=== PATIENT | male | born 1955 | race Two or more races ===

== ENCOUNTER 2018-07-10 15:15 | Inpatient (IN) | payer OTHER ==
[2018-07-10 17:31] VITALS: BMI 33.9
--- NOTE | 2018-07-10 19:15 | HP ---
CIWA Score - CIWA Score Nausea/Vomitin-Mild Nausea/No Vomiting Muscle Tremors: 1-None Visible, but [place] Anxiety: 2 Agitation: 1-Slight > Activity Paroxysmal Sweats: 1-Minimal Palms Moist Orientation: 2-Disoriented Date<2 days Tacttile Disturbances: 2-Mild Itch/Numbness/Burn Auditory Disturbances: 0-None Visual Disturbances: 0-None Headache: 2-Mild CIWA-Ar Total Score: 12 Admission [facility] - HPI Chief Complaint: Patient presents with ETOH withdrawal symptoms. Allergies/Adverse Reactions: Allergies Allergy/AdvReac Type Severity Reaction Status Date / Time No Known Allergies Allergy Verified 10/01/13 13:51 History of Present Illness: Patient presents with ETOH withdrawal symptoms. Patient started drinking at age 15 and drinks 6 beers daily. Last drink was last night. Denies history of seizures. Patient also sniffs heroin 5-10 bags daily. Last time he used was yesterday. Currently on MMTP program at [facility] and last dose of MTD 40mg was today. Denies recent use of cocaine but has used in past. Has history of overdose 10 years ago. PMH includes depression, DM, and HTN. Non-compliant with medication. Denies SI/HI and suicide attempts. Exam Limitations: No Limitations - Ebola screening Have you traveled outside of the country in the last 21 days: No Have you had contact with anyone from an Ebola affected area: No Have you been sick,other than usual withdrawal symptoms: No Do you have a fever: No - Review of Systems Constitutional: Chills, Night Sweats, Changes in sleep EENT: denies: Blurred Vision, Tearing, Hearing Loss Respiratory: denies: Cough, Shortness of Breath Cardiac: denies: Chest Pain, Palpitations, Syncope GI: reports: Diarrhea, Nausea, Poor Appetite, Poor Fluid Intake : reports: Frequency Musculoskeletal: reports: Back Pain, Muscle Pain Integumentary: reports: Other (moist skin). denies: Rash Neuro: reports: Headache, Numbness, Tremors, Unsteady Gait. denies: Seizure Endocrine: reports: No Symptoms Reported Hematology: reports: No Symptoms Reported Psychiatric: reports: Anxious, Depressed Patient History - Patient Medical History Hx Anemia: No Hx Asthma: No Hx Chronic Obstructive Pulmonary Disease (COPD): No Hx Cancer: No Hx Cardiac Disorders: No Hx Congestive Heart Failure: No Hx Hypertension: Yes Hx Hypercholesterolemia: Yes (ON MED NON COMPLIANCE) Hx Pacemaker: No HX Cerebrovascular Accident: No Hx Seizures: No Hx Dementia: No Hx Diabetes: Yes (BGM: 214mg/dl) Hx Gastrointestinal Disorders: No Hx Liver Disease: No Hx Genitourinary Disorders: No Hx Sexually Transmitted Disorders: No Hx Renal Disease (ESRD): No Hx Thyroid Disease: No Hx Human Immunodeficiency Virus (HIV): Yes (07/19 NEGATIVE) Hx Hepatitis C: No Hx Depression: Yes Hx Suicide Attempt: No Hx Bipolar Disorder: No Hx Schizophrenia: No - Patient Surgical History Past Surgical History: Yes Hx Neurologic Surgery: No Hx Cataract Extraction: No Hx Cardiac Surgery: No Hx Lung Surgery: No Hx Breast Surgery: No Hx Breast Biopsy: No Hx Abdominal Surgery: Yes (LEFT INGUINAL HERNIA REPAIR IN 1990) Hx Appendectomy: No Hx Cholecystectomy: No Hx Genitourinary Surgery: No Hx Orthopedic Surgery: No Anesthesia Reaction: No - PPD History Previous Implant?: Yes Documented Results: Positive w/o proof PPD to be Administered?: No - Smoking Cessation Smoking history: Current every day smoker Have you smoked in the past 12 months: Yes Aproximately how many cigarettes per day: 4 Hx Chewing Tobacco Use: No Initiated information on smoking cessation: Yes 'Breaking Loose' booklet given: 07/10/18 - Substance & Tx. History Hx Alcohol Use: Yes Hx Substance Use: Yes Substance Use Type: Alcohol, Cocaine, Heroin - Substances Abused Alcohol Route: Oral Frequency: 1-2 times per week Amount used: Beer 3 cans Age of first use: 14 Date of Last Use: 07/06/18 Heroin Route: Inhalation Frequency: Daily Amount used: 5-10 bags Age of first use: 27 Date of Last Use: 07/09/18 Cocaine Route: Inhalation Frequency: 1-2 times per week Amount used: $30 Age of first use: 27 Date of Last Use: 07/06/18 Family Disease History - Family Disease History Family Disease History: Other: Brother (ALCOHOL ) Admission Physical Exam S - Vital Signs Vital Signs: Vital Signs - 24 hr 07/10/18 17:28 Temperature 97.8 F Pulse Rate 73 Respiratory 20 Rate Blood Pressure 140/74 - Physical General Appearance: Yes: Disheveled, Tremorous, Sweating, Anxious HEENTM: Yes: EOMI, Hearing grossly Normal, Normal ENT Inspection, Normocephalic , MAJO Respiratory: Yes: Chest Non-Tender, Lungs Clear, Normal Breath Sounds, No Respiratory Distress, No Accessory Muscle Use Neck: Yes: No masses,lesions,Nodules, Supple Breast: Yes: Breast Exam Deferred Cardiology: Yes: Regular Rhythm, Regular Rate, S1, S2 Abdominal: Yes: Normal Bowel Sounds, Non Tender, Soft Genitourinary: Yes: Frequency Back: Yes: Normal Inspection, Muscle Spasm Musculoskeletal: Yes: full range of Motion, Gait Steady, Back pain, Muscle Pain Extremities: Yes: Normal Inspection, Normal Range of Motion, Non-Tender, Tremors Neurological: Yes: railroader II-XII NML intact, Fully Oriented, Alert, Motor Strength 5/5, Normal Response, Depressed Affect Integumentary: Yes: Normal Color, Warm, Moist Lymphatic: Yes: Within Normal Limits Cleared for Admission [facility] - Detox or Rehab [facility] Level of Care: Medically Managed Detox Regimen/Protocol: Librium [facility] Breath Alcohol Content Breath Alcohol Content: 0 Urine Drug Screen - Results Drug Screen Negative: No Urine Drug Screen Results: OPI-Opiates, MTD-Methadone
[2018-07-10] MEDS ORDERED: MENTHOL/PHENOL 1 EACH UD MM PRN (19:25)
[2018-07-10] MEDS ORDERED: MAGNESIUM CITRATE 300 ML BOTTLE PO PRN (19:25)
[2018-07-10] MEDS ORDERED: hydrOXYzine PAMOATE 50 MG CAPSULE (FP) PO PRN (19:25)
[2018-07-10] MEDS ORDERED: LOPERAMIDE HCL 2 MG CAPSULE PO PRN (19:25)
[2018-07-10] MEDS ORDERED: IBUPROFEN 400 MG TABLET (FP) PO PRN (19:25)
[2018-07-10] MEDS ORDERED: MAG HYDROX/AL HYDROX/SIMETH 30 ML UNIT-DOSE CUP PO PRN (19:25)
[2018-07-10] MEDS ORDERED: MAGNESIUM HYDROX 2400MG/30ML ORAL SUSPENSION 30 ML CUP PO PRN (19:25)
[2018-07-10] MEDS ORDERED: P-EPHED 60MG/TRIPROLIDI 2.5MG TABLET PO PRN (19:25)
[2018-07-10] MEDS ORDERED: guaiFENesin/D-METHORPHAN HB 10 ML UNIT-DOSE CUPS PO PRN (19:25)
[2018-07-10] MEDS ORDERED: ACETAMINOPHEN 325 MG TABLET (FP) PO PRN (19:25)
[2018-07-10] MEDS ORDERED: NICOTINE POLACRILEX 2 MG GUM BC PRN (19:25)
[2018-07-10] MEDS ORDERED: chlordiazePOXIDE HCL 25 MG CAPSULE PO PRN (19:27)
[2018-07-10] MEDS: chlordiazePOXIDE HCL 25 MG CAPSULE PO SCH (22:42)
[2018-07-10] MEDS: THIAMINE HCL 100 MG TABLET (FP) PO SCH (22:43)
[2018-07-10] MEDS: MELATONIN 5 MG TABLETS PO PRN (22:44)
[2018-07-11 01:50] LABS: URINE APPEARANCE CLEAR; URINE BILIRUBIN NEGATIVE (<2.0 mg/dL); URINE COLOR LTYELLOW; URINE GLUCOSE (UA) 3+ (NEGATIVE); URINE KETONE NEGATIVE (NEGATIVE); URINE LEUK ESTERASE NEGATIVE (NEGATIVE); URINE NITRITE NEGATIVE (NEGATIVE); URINE PROTEIN NEGATIVE (NEGATIVE); URINE UROBILINOGEN NEGATIVE mg/dL (0.2-1.0)
[2018-07-11] MEDS: chlordiazePOXIDE HCL 25 MG CAPSULE PO SCH ×4 (05:46→22:37)
[2018-07-11] MEDS ORDERED: METHADONE HCL 40 MG DISPERSABLE TABLET PO ONE (08:40)
--- NOTE | 2018-07-11 09:00 | CONSULT ---
[facility] Psychiatric Consult - Data Date of interview: 07/11/18 Admission source: [facility] Identifying data: Alejandra is a 63 years old male, single father of three, unemployed, domiciled, on SSI, with no psychiatric hospitalization history, with history of Heroin, Cocaine, Alcohol and Nicotine dependence, is reporting withdrawal symptoms amd seeking detox. Substance Abuse History: Smoking history: Current every day smoker. Have you smoked in the past 12 months: Yes. Aproximately how many cigarettes per day: 4. Hx Chewing Tobacco Use: No. Initiated information on smoking cessation: Yes. 'Breaking Loose' booklet given: 07/10/18. - Substance & Tx. History. Hx Alcohol Use: Yes. Hx Substance Use: Yes. Substance Use Type: Alcohol, Cocaine , Heroin. - Substances Abused. Alcohol. Route: Oral. Frequency: 1-2 times per week. Amount used: Beer 3 cans. Age of first use: 14. Date of Last Use: 07/06/18. Heroin. Route: Inhalation. Frequency: Daily. Amount used: 5-10 bags. Age of first use: 27. Date of Last Use: 07/09/18. Cocaine. Route: Inhalation. Frequency: 1-2 times per week. Amount used: $30. Age of first use: 27. Date of Last Use: 07/06/18 Medical History: DM-II, HTN Psychiatric History: Patient reports history of depression and anxiety, denies suicidal, homicidal history, reports no history of psychiatric admissionl, reports no medications taking prior to admission. Physical/Sexual Abuse/Trauma History: Denies Additional Comment: Observation. Detox Unit Care Protocol Mental Status Exam - Mental Status Exam Alert and Oriented to: Person Cognitive Function: Fair Patient Appearance: Unkempt Mood: Sad Affect: Flat Patient Behavior: Sedated Speech Pattern: Delayed Voice Loudness: Mildly Soft/Quiet Thought Process: Circumstantial Thought Disorder: Being Controlled Hallucinations: Denies Suicidal Ideation: Denies Homicidal Ideation: Denies Insight/Judgement: Fair Sleep: Difficulty falling asleep Appetite: Weight gain Muscle strength/Tone: Mild Hypotonicity Gait/Station: Shuffling Additional Comments: Observation. Detox Unit Care Protocol Psychiatric Findings - Problem List ([place] 1, 2,3) (1) Alcohol-induced mood disorder Current Visit: Yes Status: Acute (2) Alcohol dependence with uncomplicated withdrawal Current Visit: Yes Status: Chronic (3) Essential hypertension Current Visit: Yes Status: Chronic (4) Alcohol dependence Current Visit: No Status: Active (5) Syncope Current Visit: No Status: Active - Initial Treatment Plan Initial Treatment Plan: Observation. Detox Unit Care Protocol
--- NOTE | 2018-07-11 10:21 | PN ---
S CIWA - CIWA Score Nausea/Vomitin Muscle Tremors: 2 Anxiety: 3 Agitation: 2 Paroxysmal Sweats: 3 Orientation: 0-Oriented Tacttile Disturbances: 2-Mild Itch/Numbness/Burn Auditory Disturbances: 0-None Visual Disturbances: 0-None Headache: 0-None Present CIWA-Ar Total Score: 14 S Progress Note (SOAP) Subjective: interrupted sleep, sweats, anxious, weakness, tired Objective: 07/11/18 10:19 Vital Signs Temperature 97.3 F L 07/11/18 06:13 Pulse Rate 70 07/11/18 06:13 Respiratory Rate 18 07/11/18 06:13 Blood Pressure 153/78 07/11/18 06:13 O2 Sat by Pulse Oximetry (%) Vital Signs Temperature 97.3 F L 07/11/18 06:13 Pulse Rate 70 07/11/18 06:13 Respiratory Rate 18 07/11/18 06:13 Blood Pressure 153/78 07/11/18 06:13 O2 Sat by Pulse Oximetry (%) Laboratory Tests 07/10/18 07/11/18 23:07 05:44 POC Glucometer 240 Urine Color Ltyellow Urine Appearance Clear Urine pH 5.0 Ur Specific [place] 1.032 Urine Protein Negative Urine Glucose (UA) 3+ H Urine Ketones Negative Urine Blood Negative Urine Nitrite Negative Urine Bilirubin Negative Urine Urobilinogen Negative Ur Leukocyte Esterase Negative pending labs pt aox3 in nad ambulating Assessment: 07/11/18 10:20 withdrawal sx's OTP 07/11/18 10:21 Plan: cont. detox increase fluids methadone 40mg /d f/up pending labs
[2018-07-11 10:23] LABS: HEMATOCRIT 39.3 % (35.4-49); HEMOGLOBIN 13.3 GM/dL (11.7-16.9); MCH 29.3 pg (25.7-33.7); MCHC 33.8 g/dl (32.0-35.9); MEAN CELL VOLUME 86.8 fl (80-96); PLATELET COUNT 219 K/MM3 (134-434); RBC 4.53 M/mm3 (4.00-5.60); RDW 13.6 % (11.9-15.9); WHITE BLOOD COUNT 8.3 K/mm3 (4.0-10.0)
[2018-07-11 10:50] LABS: CHLORIDE 99 mmol/L (98-107); POTASSIUM 4.1 mmol/L (3.5-5.1); SODIUM 137 mmol/L (136-145)
[2018-07-11] MEDS: PRENATAL VITAMINS W/ FOLIC ACID TABLET (FP) PO SCH (10:54)
[2018-07-11] MEDS: NICOTINE 21 MG/24 HOURS TOPICAL PATCH TD SCH (10:55)
[2018-07-11 11:17] LABS: ALBUMIN 3.4 g/dl (3.4-5.0); ALK PHOS 124 U/L (45-117); ANION GAP 7 MMOL/L (8-16); BILIRUBIN,TOTAL 0.5 mg/dL (0.2-1.0); BLOOD UREA NITROGEN 13 mg/dL (7-18); CO2 31 mmol/L (21-32); CREATININE 0.8 mg/dL (0.7-1.3); GLUCOSE,RANDOM 272 mg/dL (74-106); SGOT/AST 13 U/L (15-37); SGPT/ALT 15 U/L (12-78); TOT PROT 6.8 g/dl (6.4-8.2)
--- NOTE | 2018-07-11 12:32 | EKG ---
Test Reason : Blood Pressure : / mmHG Vent. Rate : 073 BPM Atrial Rate : 073 BPM P-R Int : 190 ms QRS Dur : 090 ms QT Int : 404 ms P-R-T Axes : 061 040 075 degrees QTc Int : 445 ms POOR DATA QUALITY, INTERPRETATION MAY BE ADVERSELY AFFECTED NORMAL SINUS RHYTHM NORMAL ECG NO PREVIOUS ECGS AVAILABLE Confirmed by SHARON GARRETT MD ([id number]) on 07/11/2018 12:31:49 PM Referred By: Confirmed By:SHARON GARRETT MD
--- NOTE | 2018-07-11 15:27 | EKG ---
Test Reason : Blood Pressure : / mmHG Vent. Rate : 081 BPM Atrial Rate : 081 BPM P-R Int : 174 ms QRS Dur : 094 ms QT Int : 390 ms P-R-T Axes : 060 047 065 degrees QTc Int : 453 ms NORMAL SINUS RHYTHM NORMAL ECG WHEN COMPARED WITH ECG OF 10-JUL-2018 21:54, NO SIGNIFICANT CHANGE WAS FOUND Confirmed by SHARON GARRETT MD ([id number]) on 07/11/2018 3:26:27 PM Referred By: Confirmed By:SHARON GARRETT MD
[2018-07-11] MEDS ORDERED: INSULIN (NOVOLOG) ASPART 100 UNITS/ML 10ML VIAL ONE ×2 (17:50→22:42)
[2018-07-11] MEDS: metFORMIN HCL 500 MG TABLET (FP) PO SCH (17:55)
[2018-07-11] MEDS: INSULIN SLIDING SCALE (NOVOLOG) 1 VIAL SQ SCH ×2 (17:55→22:40)
[2018-07-11] MEDS: THIAMINE HCL 100 MG TABLET (FP) PO SCH (22:37)
[2018-07-11] MEDS: MELATONIN 5 MG TABLETS PO PRN (22:42)
[2018-07-12] MEDS: chlordiazePOXIDE HCL 25 MG CAPSULE PO SCH ×3 (05:52→17:53)
[2018-07-12] MEDS: METHADONE HCL 40 MG DISPERSABLE TABLET PO SCH (05:52)
[2018-07-12] MEDS: metFORMIN HCL 500 MG TABLET (FP) PO SCH ×2 (06:00→17:39)
[2018-07-12] MEDS: INSULIN SLIDING SCALE (NOVOLOG) 1 VIAL SQ SCH ×4 (07:00→22:42)
[2018-07-12] MEDS: PRENATAL VITAMINS W/ FOLIC ACID TABLET (FP) PO SCH (10:46)
[2018-07-12] MEDS: NICOTINE 21 MG/24 HOURS TOPICAL PATCH TD SCH (10:46)
[2018-07-12] MEDS ORDERED: INSULIN (NOVOLOG) ASPART 100 UNITS/ML 10ML VIAL ONE ×2 (11:24→22:42)
--- NOTE | 2018-07-12 20:30 | PN ---
[facility] CIWA - CIWA Score Nausea/Vomitin-Mild Nausea/No Vomiting Muscle Tremors: 4-Moderate,w/Arms Extend Anxiety: 1-Mildly Anxious Agitation: 0-Normal Activity Paroxysmal Sweats: No Perspiration Orientation: 0-Oriented Auditory Disturbances: 0-None Visual Disturbances: 0-None Headache: 0-None Present [facility] Progress Note (SOAP) Subjective: States feeling better. Still w/ some nausea. w/o vomiting. Objective: A&O x 3. Tremors of hands. Abd S/NT/BS+. Vital Signs 07/12/18 07/12/18 13:36 17:27 Temperature 97.9 F 98.1 F Pulse Rate 70 79 Respiratory 18 18 Rate Blood Pressure 138/78 127/85 Laboratory Last Values WBC 8.3 K/mm3 (4.0-10.0) 07/11/18 07:30 RBC 4.53 M/mm3 (4.00-5.60) 07/11/18 07:30 Hgb 13.3 GM/dL (11.7-16.9) 07/11/18 07:30 Hct 39.3 % (35.4-49) 07/11/18 07:30 MCV 86.8 fl (80-96) 07/11/18 07:30 MCH 29.3 pg (25.7-33.7) 07/11/18 07:30 MCHC 33.8 g/dl (32.0-35.9) 07/11/18 07:30 RDW 13.6 % (11.9-15.9) 07/11/18 07:30 Plt Count 219 K/MM3 (134-434) D 07/11/18 07:30 MPV 9.0 fl (7.5-11.1) D 07/11/18 07:30 Sodium 137 mmol/L (136-145) 07/11/18 07:30 Potassium 4.1 mmol/L (3.5-5.1) 07/11/18 07:30 Chloride 99 mmol/L (98-107) 07/11/18 07:30 Carbon Dioxide 31 mmol/L (21-32) 07/11/18 07:30 Anion Gap 7 MMOL/L (8-16) L 07/11/18 07:30 BUN 13 mg/dL (7-18) 07/11/18 07:30 Creatinine 0.8 mg/dL (0.7-1.3) 07/11/18 07:30 Creat Clearance w eGFR > 60 (>60) 07/11/18 07:30 POC Glucometer 222 UNITS (80-120) 07/12/18 16:43 Random Glucose 272 mg/dL (74-106) H D 07/11/18 07:30 Calcium 9.0 mg/dL (8.5-10.1) 07/11/18 07:30 Total Bilirubin 0.5 mg/dL (0.2-1.0) 07/11/18 07:30 AST 13 U/L (15-37) L 07/11/18 07:30 ALT 15 U/L (12-78) D 07/11/18 07:30 Alkaline Phosphatase 124 U/L (45-117) H 07/11/18 07:30 Total Protein 6.8 g/dl (6.4-8.2) 07/11/18 07:30 Albumin 3.4 g/dl (3.4-5.0) 07/11/18 07:30 Urine Color Ltyellow 07/10/18 23:07 Urine Appearance Clear 07/10/18 23:07 Urine pH 5.0 (5.0-8.0) 07/10/18 23:07 Ur Specific [place] 1.032 (1.001-1.035) 07/10/18 23:07 Urine Protein Negative (NEGATIVE) 07/10/18 23:07 Urine Glucose (UA) 3+ (NEGATIVE) H 07/10/18 23:07 Urine Ketones Negative (NEGATIVE) 07/10/18 23:07 Urine Blood Negative (NEGATIVE) 07/10/18 23:07 Urine Nitrite Negative (NEGATIVE) 07/10/18 23:07 Urine Bilirubin Negative (<2.0 mg/dL) 07/10/18 23:07 Urine Urobilinogen Negative mg/dL (0.2-1.0) 07/10/18 23:07 Ur Leukocyte Esterase Negative (NEGATIVE) 07/10/18 23:07 RPR Titer Nonreactive (NONREACTIVE) 07/11/18 07:30 Labs reviewed. Assessment: Alcohol withdrawal symptoms. Diabetes 07/12/18 20:29 Plan: Continue detox. Continue glucose monitoring.
[2018-07-12] MEDS: THIAMINE HCL 100 MG TABLET (FP) PO SCH (22:39)
[2018-07-12] MEDS: chlordiazePOXIDE 5 MG CAPSULE PO SCH (22:39)
[2018-07-12] MEDS: MELATONIN 5 MG TABLETS PO PRN (22:43)
[2018-07-13] MEDS: chlordiazePOXIDE 5 MG CAPSULE PO SCH ×3 (06:17→17:26)
[2018-07-13] MEDS: metFORMIN HCL 500 MG TABLET (FP) PO SCH ×2 (06:18→17:27)
[2018-07-13] MEDS: METHADONE HCL 40 MG DISPERSABLE TABLET PO SCH (06:18)
[2018-07-13] MEDS: INSULIN SLIDING SCALE (NOVOLOG) 1 VIAL SQ SCH ×3 (08:00→17:25)
[2018-07-13] MEDS: PRENATAL VITAMINS W/ FOLIC ACID TABLET (FP) PO SCH (10:48)
[2018-07-13] MEDS: NICOTINE 21 MG/24 HOURS TOPICAL PATCH TD SCH (10:48)
[2018-07-13] MEDS ORDERED: INSULIN (NOVOLOG) ASPART 100 UNITS/ML 10ML VIAL ONE ×2 (12:08→17:15)
--- NOTE | 2018-07-13 15:20 | PN ---
S Progress Note (SOAP) Subjective: Patient states wants to go to rehab. States alcohol withdrawal symptoms will be manageable w/o librium. Objective: A & O x 3. Mild tremors of hands. Vital Signs 07/13/18 07/13/18 09:05 13:24 Temperature 98.6 F 97.9 F Pulse Rate 85 70 Respiratory 18 18 Rate Blood Pressure 153/84 120/52 Laboratory Last Values WBC 8.3 K/mm3 (4.0-10.0) 07/11/18 07:30 RBC 4.53 M/mm3 (4.00-5.60) 07/11/18 07:30 Hgb 13.3 GM/dL (11.7-16.9) 07/11/18 07:30 Hct 39.3 % (35.4-49) 07/11/18 07:30 MCV 86.8 fl (80-96) 07/11/18 07:30 MCH 29.3 pg (25.7-33.7) 07/11/18 07:30 MCHC 33.8 g/dl (32.0-35.9) 07/11/18 07:30 RDW 13.6 % (11.9-15.9) 07/11/18 07:30 Plt Count 219 K/MM3 (134-434) D 07/11/18 07:30 MPV 9.0 fl (7.5-11.1) D 07/11/18 07:30 Sodium 137 mmol/L (136-145) 07/11/18 07:30 Potassium 4.1 mmol/L (3.5-5.1) 07/11/18 07:30 Chloride 99 mmol/L (98-107) 07/11/18 07:30 Carbon Dioxide 31 mmol/L (21-32) 07/11/18 07:30 Anion Gap 7 MMOL/L (8-16) L 07/11/18 07:30 BUN 13 mg/dL (7-18) 07/11/18 07:30 Creatinine 0.8 mg/dL (0.7-1.3) 07/11/18 07:30 Creat Clearance w eGFR > 60 (>60) 07/11/18 07:30 POC Glucometer 349 UNITS (80-120) 07/13/18 12:04 Random Glucose 272 mg/dL (74-106) H D 07/11/18 07:30 Calcium 9.0 mg/dL (8.5-10.1) 07/11/18 07:30 Total Bilirubin 0.5 mg/dL (0.2-1.0) 07/11/18 07:30 AST 13 U/L (15-37) L 07/11/18 07:30 ALT 15 U/L (12-78) D 07/11/18 07:30 Alkaline Phosphatase 124 U/L (45-117) H 07/11/18 07:30 Total Protein 6.8 g/dl (6.4-8.2) 07/11/18 07:30 Albumin 3.4 g/dl (3.4-5.0) 07/11/18 07:30 Urine Color Ltyellow 07/10/18 23:07 Urine Appearance Clear 07/10/18 23:07 Urine pH 5.0 (5.0-8.0) 07/10/18 23:07 Ur Specific [place] 1.032 (1.001-1.035) 07/10/18 23:07 Urine Protein Negative (NEGATIVE) 07/10/18 23:07 Urine Glucose (UA) 3+ (NEGATIVE) H 07/10/18 23:07 Urine Ketones Negative (NEGATIVE) 07/10/18 23:07 Urine Blood Negative (NEGATIVE) 07/10/18 23:07 Urine Nitrite Negative (NEGATIVE) 07/10/18 23:07 Urine Bilirubin Negative (<2.0 mg/dL) 07/10/18 23:07 Urine Urobilinogen Negative mg/dL (0.2-1.0) 07/10/18 23:07 Ur Leukocyte Esterase Negative (NEGATIVE) 07/10/18 23:07 RPR Titer Nonreactive (NONREACTIVE) 07/11/18 07:30 Labs reviewed. Assessment: Alcohol withdrawal - stabilizing. DM w/ Hyperglycemia Methadone maintenance Plan: Discontinue alcohol detox. Continue on methadone. Continue DM management Discharge to rehab.
--- NOTE | 2018-07-13 15:26 | DS ---
[facility] Detox Discharge Summary Admission Date: 07/10/18 Discharge Date: 07/13/18 - History Present History: Alcohol Dependence, Cocaine Dependence, MMTP Pertinent Past History: Patient with a hx of alcohol use disorder since age 14. Cocaine use disorder sine age 27. Heroin use disorder since age 27 but currently stable in a OTP on methadone. - Physical Exam Results Vital Signs: Vital Signs Temperature 97.9 F 07/13/18 13:24 Pulse Rate 70 07/13/18 13:24 Respiratory Rate 18 07/13/18 13:24 Blood Pressure 120/52 07/13/18 13:24 O2 Sat by Pulse Oximetry (%) Pertinent Admission Physical Exam Findings: Patient admitted with alcohol withdrawal symptoms. Patient with uncontrolled DM. Laboratory Tests 07/10/18 07/10/18 07/11/18 18:43 23:07 05:44 WBC RBC Hgb Hct MCV MCH MCHC RDW Plt Count MPV Sodium Potassium Chloride Carbon Dioxide Anion Gap BUN Creatinine Creat Clearance w eGFR POC Glucometer 214 240 Random Glucose Calcium Total Bilirubin AST ALT Alkaline Phosphatase Total Protein Albumin Urine Color Ltyellow Urine Appearance Clear Urine pH 5.0 Ur Specific [place] 1.032 Urine Protein Negative Urine Glucose (UA) 3+ H Urine Ketones Negative Urine Blood Negative Urine Nitrite Negative Urine Bilirubin Negative Urine Urobilinogen Negative Ur Leukocyte Esterase Negative RPR Titer 07/11/18 07/11/18 07/11/18 07:30 07:30 07:30 WBC 8.3 RBC 4.53 Hgb 13.3 Hct 39.3 MCV 86.8 MCH 29.3 MCHC 33.8 RDW 13.6 Plt Count 219 D MPV 9.0 D Sodium 137 Potassium 4.1 Chloride 99 Carbon Dioxide 31 Anion Gap 7 L BUN 13 Creatinine 0.8 Creat Clearance w eGFR > 60 POC Glucometer Random Glucose 272 H D Calcium 9.0 Total Bilirubin 0.5 AST 13 L ALT 15 D Alkaline Phosphatase 124 H Total Protein 6.8 Albumin 3.4 Urine Color Urine Appearance Urine pH Ur Specific [place] Urine Protein Urine Glucose (UA) Urine Ketones Urine Blood Urine Nitrite Urine Bilirubin Urine Urobilinogen Ur Leukocyte Esterase RPR Titer Nonreactive 07/11/18 07/11/18 07/12/18 16:27 22:39 05:58 WBC RBC Hgb Hct MCV MCH MCHC RDW Plt Count MPV Sodium Potassium Chloride Carbon Dioxide Anion Gap BUN Creatinine Creat Clearance w eGFR POC Glucometer 308 310 249 Random Glucose Calcium Total Bilirubin AST ALT Alkaline Phosphatase Total Protein Albumin Urine Color Urine Appearance Urine pH Ur Specific [place] Urine Protein Urine Glucose (UA) Urine Ketones Urine Blood Urine Nitrite Urine Bilirubin Urine Urobilinogen Ur Leukocyte Esterase RPR Titer 07/12/18 07/12/18 07/12/18 11:07 16:43 22:40 WBC RBC Hgb Hct MCV MCH MCHC RDW Plt Count MPV Sodium Potassium Chloride Carbon Dioxide Anion Gap BUN Creatinine Creat Clearance w eGFR POC Glucometer 318 222 307 Random Glucose Calcium Total Bilirubin AST ALT Alkaline Phosphatase Total Protein Albumin Urine Color Urine Appearance Urine pH Ur Specific [place] Urine Protein Urine Glucose (UA) Urine Ketones Urine Blood Urine Nitrite Urine Bilirubin Urine Urobilinogen Ur Leukocyte Esterase RPR Titer 07/13/18 07/13/18 07/13/18 06:12 12:04 16:35 WBC RBC Hgb Hct MCV MCH MCHC RDW Plt Count MPV Sodium Potassium Chloride Carbon Dioxide Anion Gap BUN Creatinine Creat Clearance w eGFR POC Glucometer 202 349 275 Random Glucose Calcium Total Bilirubin AST ALT Alkaline Phosphatase Total Protein Albumin Urine Color Urine Appearance Urine pH Ur Specific [place] Urine Protein Urine Glucose (UA) Urine Ketones Urine Blood Urine Nitrite Urine Bilirubin Urine Urobilinogen Ur Leukocyte Esterase RPR Titer LABS REVIEWED. - Treatment Hospital Course: Detox Protocol Followed, Detoxed Safely, Responded well, Discharged Condition Good (Alert and oriented. Gait steady.), Rehab Referral Accepted Patient has Accepted a Rehab Referral to: [facility] - Medication Discharge Medications: Ambulatory Orders Metformin HCl [Glucophage] 500 mg PO BID 07/10/18 - Diagnosis (1) Alcohol dependence with uncomplicated withdrawal Status: Acute (2) DM Diabetes mellitus type 2 Status: Chronic (3) Essential hypertension Status: Chronic - AMA Did Patient Leave Against Medical Advice: No
[2018-07-13 17:24] VITALS: BP 150/66; PULSE 73; TEMP 98.1
[2018-07-13] MEDS ORDERED: chlordiazePOXIDE HCL 10 MG CAPSULE PO SCH (23:00)
== END 2018-07-13 18:49 | disposition other institution (70) | DRG 773 ==
LOC: YASAS 15:15 → Y6N 20:26
PROC: HZ2ZZZZ Detoxification Services for Substance Abuse Treatment (ICD-10-PCS; principal; 2018-07-10)
DX: F10.230 Alcohol dependence with withdrawal, uncomplicated (principal); F11.20 Opioid dependence, uncomplicated; F14.20 Cocaine dependence, uncomplicated; F10.24 Alcohol dependence with alcohol-induced mood disorder; F32.9 Major depressive disorder, single episode, unspecified; I10 Essential (primary) hypertension; E11.65 Type 2 diabetes mellitus with hyperglycemia; Z91.14 Patient's other noncompliance with medication regimen; Z91.5 Personal history of self-harm; Z79.4 Long term (current) use of insulin; Z79.84 Long term (current) use of oral hypoglycemic drugs
CPT/HCPCS: 36415; 71046-TC-FY; 80053; 81003; 82962; 85027; 86593; 93005; 93010

== ENCOUNTER 2018-07-13 19:01 | Inpatient (IN) | payer OTHER ==
[2018-07-13] MEDS ORDERED: NICOTINE POLACRILEX 2 MG GUM BUC PRN (20:23)
[2018-07-13] MEDS ORDERED: guaiFENesin/D-METHORPHAN HB 10 ML UNIT-DOSE CUPS PO PRN (20:23)
[2018-07-13] MEDS ORDERED: MENTHOL/PHENOL 1 EACH UD MM PRN (20:23)
[2018-07-13] MEDS ORDERED: MAGNESIUM CITRATE 300 ML BOTTLE PO PRN (20:23)
[2018-07-13] MEDS ORDERED: LOPERAMIDE HCL 2 MG CAPSULE PO PRN (20:23)
[2018-07-13] MEDS ORDERED: MAGNESIUM HYDROX 2400MG/30ML ORAL SUSPENSION 30 ML CUP PO PRN (20:23)
[2018-07-13] MEDS ORDERED: MAG HYDROX/AL HYDROX/SIMETH 30 ML UNIT-DOSE CUP PO PRN (20:23)
[2018-07-13] MEDS ORDERED: P-EPHED 60MG/TRIPROLIDI 2.5MG TABLET PO PRN (20:23)
[2018-07-13 21:07] VITALS: BMI 33.9
[2018-07-13] MEDS: metFORMIN HCL 500 MG TABLET (FP) PO SCH (21:34)
[2018-07-13] MEDS: INSULIN SLIDING SCALE (NOVOLOG) 1 VIAL SQ SCH (21:35)
[2018-07-13] MEDS: hydrOXYzine PAMOATE 50 MG CAPSULE (FP) PO PRN (21:37)
[2018-07-13] MEDS: THIAMINE HCL 100 MG TABLET (FP) PO SCH (21:37)
[2018-07-13] MEDS: MELATONIN 5 MG TABLETS PO PRN (21:37)
[2018-07-14] MEDS: METHADONE HCL 40 MG DISPERSABLE TABLET PO SCH (06:13)
[2018-07-14] MEDS: metFORMIN HCL 500 MG TABLET (FP) PO SCH ×2 (06:14→16:39)
[2018-07-14] MEDS: INSULIN SLIDING SCALE (NOVOLOG) 1 VIAL SQ SCH ×4 (06:15→21:34)
[2018-07-14] MEDS: PRENATAL VITAMINS W/ FOLIC ACID TABLET (FP) PO SCH (09:47)
[2018-07-14] MEDS: NICOTINE 21 MG/24 HOURS TOPICAL PATCH TD SCH (09:48)
[2018-07-14] MEDS ORDERED: INSULIN (NOVOLOG) ASPART 100 UNITS/ML 10ML VIAL ONE (11:36)
[2018-07-14] MEDS: THIAMINE HCL 100 MG TABLET (FP) PO SCH (21:35)
[2018-07-14] MEDS: MELATONIN 5 MG TABLETS PO PRN (21:35)
[2018-07-15] MEDS: METHADONE HCL 40 MG DISPERSABLE TABLET PO SCH (06:16)
[2018-07-15] MEDS: metFORMIN HCL 500 MG TABLET (FP) PO SCH ×2 (06:19→17:00)
[2018-07-15] MEDS: IBUPROFEN 400 MG TABLET (FP) PO PRN (06:19)
[2018-07-15] MEDS: INSULIN SLIDING SCALE (NOVOLOG) 1 VIAL SQ SCH ×4 (06:21→21:44)
[2018-07-15] MEDS: PRENATAL VITAMINS W/ FOLIC ACID TABLET (FP) PO SCH (09:56)
[2018-07-15] MEDS: NICOTINE 21 MG/24 HOURS TOPICAL PATCH TD SCH (09:56)
[2018-07-15] MEDS ORDERED: INSULIN (NOVOLOG) ASPART 100 UNITS/ML 10ML VIAL ONE (11:32)
[2018-07-15] MEDS: THIAMINE HCL 100 MG TABLET (FP) PO SCH (21:42)
[2018-07-15] MEDS: MELATONIN 5 MG TABLETS PO PRN (21:42)
[2018-07-16] MEDS: METHADONE HCL 40 MG DISPERSABLE TABLET PO SCH (06:27)
[2018-07-16] MEDS: IBUPROFEN 400 MG TABLET (FP) PO PRN ×2 (06:27→11:55)
[2018-07-16] MEDS: metFORMIN HCL 500 MG TABLET (FP) PO SCH ×2 (07:07→16:53)
[2018-07-16] MEDS: INSULIN SLIDING SCALE (NOVOLOG) 1 VIAL SQ SCH ×4 (07:07→21:15)
--- NOTE | 2018-07-16 07:45 | HP ---
Psychiatrist Admission - Data Date of interview: 07/16/18 Admission source: 6N Identifying data: This is the first [facility] admission for this 63 years old single male, father of 3 children, unemployed on SSI, homeless Medical History: Significant for hypertension, type 2 diabetes mellitus, pain in both knee and history of surgery fpr left hernia repair. Patient is on methadone 40 mg/day. Smokes 4 cigarettes daily Psychiatric History: enies history of previous psychiatric treatment Physical/Sexual Abuse/Trauma History: Denies history of emotional, physical or sexual abuse as well as DV relationship. Additional Comment: Reports history of 4 previous misdemeanor arrests. No probation Vital Signs: Vital Signs - 24 hr 07/16/18 07/16/18 07/16/18 00:30 03:30 07:05 Temperature 97.8 F Pulse Rate 73 Respiratory 18 18 18 Rate Blood Pressure 149/91 Allergies/Adverse Reactions: Allergies Allergy/AdvReac Type Severity Reaction Status Date / Time No Known Allergies Allergy Verified 10/01/13 13:51 Date of last physical exam: 07/10/18 Concur with the findings of this exam: Yes - Substance Abuse/Tx History Hx Alcohol Use: Yes Hx Substance Use: Yes (Currently attends [facility]) Substance Use Type: Alcohol (Started drinking alcohol at age 14, consumes 3 cans of beer 1-2 times weekly. Last drank on 07/06/18), Cocaine (Started using cocaine at age 27, consumes $30 worth daily. Last used on 07/06/18), Heroin ( Started using hroin at age 27, consumes 5-10 bags daily. Last used on 07/09/18) Hx Substance Use Treatment: Yes (2 previous inpt detox admissions @ [facility]. First inpt rehab admission) Mental Status Exam - Mental Status Exam Alert and Oriented to: Time, Place, Person Patient Appearance: Disheveled Mood: Depressed Affect: Appropriate Patient Behavior: Cooperative Speech Pattern: Clear Voice Loudness: Normal Thought Process: Intact, Goal Oriented Thought Disorder: Not Present Hallucinations: Denies Suicidal Ideation: Denies Homicidal Ideation: Denies Insight/Judgement: Fair Sleep: Poorly Appetite: Good Muscle strength/Tone: Normal Gait/Station: Normal (use a cane as ambulatory aid) Psychiatric Findings - Problem List ([place] 1, 2,3) (1) Alcohol dependence Current Visit: No Status: Active (2) Cocaine dependence Current Visit: Yes Status: Acute (3) Opioid dependence on agonist therapy Current Visit: Yes Status: Chronic (4) Nicotine dependence Current Visit: No Status: Chronic Qualifiers: Nicotine product type: cigarettes (5) Substance induced mood disorder Current Visit: Yes Status: Acute (6) Substance-induced sleep disorder Current Visit: Yes Status: Acute (7) DM Diabetes mellitus type 2 Current Visit: No Status: Chronic (8) Essential hypertension Current Visit: No Status: Chronic - Initial Treatment Plan Initial Treatment Plan: Monitor progress
[2018-07-16] MEDS: PRENATAL VITAMINS W/ FOLIC ACID TABLET (FP) PO SCH (10:59)
[2018-07-16] MEDS: NICOTINE 21 MG/24 HOURS TOPICAL PATCH TD SCH (10:59)
[2018-07-16] MEDS ORDERED: INSULIN (NOVOLOG) ASPART 100 UNITS/ML 10ML VIAL ONE (11:57)
--- NOTE | 2018-07-16 14:43 | PN ---
[facility] Progress Note Note: Vital Signs Temperature 97.8 F 07/16/18 07:05 Pulse Rate 73 07/16/18 07:05 Respiratory Rate 18 07/16/18 07:05 Blood Pressure 149/91 07/16/18 07:05 O2 Sat by Pulse Oximetry (%) c/o of chronic bilateral knee pain secondary to OA. Patient Aox3 no distress no adventitious breath sounds full, ROM, no joint erythema or infusion skin intact OA Plan: Ibuprofen PRN Patient encourage to use is cane for ambulation ambulate increase fluids Patient to follow up with primary care provider upon discharge. Continue to monitor
[2018-07-16] MEDS: hydrOXYzine PAMOATE 50 MG CAPSULE (FP) PO PRN ×2 (16:06→21:16)
[2018-07-16] MEDS: ACETAMINOPHEN 325 MG TABLET (FP) PO PRN (16:06)
[2018-07-16] MEDS: THIAMINE HCL 100 MG TABLET (FP) PO SCH (21:16)
[2018-07-16] MEDS: MELATONIN 5 MG TABLETS PO PRN (21:16)
[2018-07-17] MEDS: METHADONE HCL 40 MG DISPERSABLE TABLET PO SCH (06:17)
[2018-07-17] MEDS ORDERED: INSULIN (NOVOLOG) ASPART 100 UNITS/ML 10ML VIAL ONE ×2 (07:10→11:52)
[2018-07-17] MEDS: INSULIN SLIDING SCALE (NOVOLOG) 1 VIAL SQ SCH ×4 (07:11→21:19)
[2018-07-17] MEDS: metFORMIN HCL 500 MG TABLET (FP) PO SCH ×2 (07:11→16:34)
[2018-07-17] MEDS: PRENATAL VITAMINS W/ FOLIC ACID TABLET (FP) PO SCH (10:12)
[2018-07-17] MEDS: NICOTINE 21 MG/24 HOURS TOPICAL PATCH TD SCH (10:12)
[2018-07-17] MEDS: MELATONIN 5 MG TABLETS PO PRN (21:20)
[2018-07-17] MEDS: THIAMINE HCL 100 MG TABLET (FP) PO SCH (21:20)
[2018-07-18] MEDS: METHADONE HCL 40 MG DISPERSABLE TABLET PO SCH (06:15)
[2018-07-18] MEDS: metFORMIN HCL 500 MG TABLET (FP) PO SCH ×2 (07:03→16:36)
[2018-07-18] MEDS: INSULIN SLIDING SCALE (NOVOLOG) 1 VIAL SQ SCH ×4 (07:03→22:24)
[2018-07-18] MEDS ORDERED: INSULIN (NOVOLOG) ASPART 100 UNITS/ML 10ML VIAL ONE ×3 (07:04→22:54)
[2018-07-18] MEDS: NICOTINE 21 MG/24 HOURS TOPICAL PATCH TD SCH (10:09)
[2018-07-18] MEDS: PRENATAL VITAMINS W/ FOLIC ACID TABLET (FP) PO SCH (10:09)
[2018-07-18] MEDS: ACETAMINOPHEN 325 MG TABLET (FP) PO PRN (18:03)
[2018-07-18] MEDS: THIAMINE HCL 100 MG TABLET (FP) PO SCH (22:26)
[2018-07-18] MEDS: MELATONIN 5 MG TABLETS PO PRN (22:26)
[2018-07-19] MEDS: metFORMIN HCL 500 MG TABLET (FP) PO SCH ×2 (06:38→16:59)
[2018-07-19] MEDS: METHADONE HCL 40 MG DISPERSABLE TABLET PO SCH (06:38)
[2018-07-19] MEDS: INSULIN SLIDING SCALE (NOVOLOG) 1 VIAL SQ SCH ×4 (06:41→21:12)
[2018-07-19] MEDS ORDERED: INSULIN (NOVOLOG) ASPART 100 UNITS/ML 10ML VIAL ONE ×2 (07:12→11:50)
[2018-07-19] MEDS: PRENATAL VITAMINS W/ FOLIC ACID TABLET (FP) PO SCH (10:24)
[2018-07-19] MEDS: NICOTINE 21 MG/24 HOURS TOPICAL PATCH TD SCH (10:24)
[2018-07-19] MEDS: THIAMINE HCL 100 MG TABLET (FP) PO SCH (21:11)
[2018-07-19] MEDS: MELATONIN 5 MG TABLETS PO PRN (21:11)
[2018-07-20] MEDS: METHADONE HCL 40 MG DISPERSABLE TABLET PO SCH (06:20)
[2018-07-20] MEDS: INSULIN SLIDING SCALE (NOVOLOG) 1 VIAL SQ SCH ×4 (07:08→21:10)
[2018-07-20] MEDS ORDERED: INSULIN (NOVOLOG) ASPART 100 UNITS/ML 10ML VIAL ONE ×3 (07:08→16:47)
[2018-07-20] MEDS: metFORMIN HCL 500 MG TABLET (FP) PO SCH ×2 (07:08→16:46)
[2018-07-20] MEDS: NICOTINE 21 MG/24 HOURS TOPICAL PATCH TD SCH (10:16)
[2018-07-20] MEDS: PRENATAL VITAMINS W/ FOLIC ACID TABLET (FP) PO SCH (10:16)
[2018-07-20] MEDS: THIAMINE HCL 100 MG TABLET (FP) PO SCH (22:09)
[2018-07-21] MEDS: METHADONE HCL 40 MG DISPERSABLE TABLET PO SCH (06:26)
[2018-07-21] MEDS: metFORMIN HCL 500 MG TABLET (FP) PO SCH ×2 (06:55→16:54)
[2018-07-21] MEDS: INSULIN SLIDING SCALE (NOVOLOG) 1 VIAL SQ SCH ×4 (06:56→21:10)
[2018-07-21] MEDS: NICOTINE 21 MG/24 HOURS TOPICAL PATCH TD SCH (10:12)
[2018-07-21] MEDS: PRENATAL VITAMINS W/ FOLIC ACID TABLET (FP) PO SCH (10:12)
[2018-07-21] MEDS ORDERED: INSULIN (NOVOLOG) ASPART 100 UNITS/ML 10ML VIAL ONE (12:07)
[2018-07-21] MEDS: THIAMINE HCL 100 MG TABLET (FP) PO SCH (21:09)
[2018-07-21] MEDS: MELATONIN 5 MG TABLETS PO PRN (21:09)
[2018-07-22] MEDS: METHADONE HCL 40 MG DISPERSABLE TABLET PO SCH (06:29)
[2018-07-22] MEDS: INSULIN SLIDING SCALE (NOVOLOG) 1 VIAL SQ SCH ×4 (07:06→21:13)
[2018-07-22] MEDS: metFORMIN HCL 500 MG TABLET (FP) PO SCH ×2 (07:06→17:02)
[2018-07-22] MEDS: NICOTINE 21 MG/24 HOURS TOPICAL PATCH TD SCH (09:54)
[2018-07-22] MEDS: PRENATAL VITAMINS W/ FOLIC ACID TABLET (FP) PO SCH (09:54)
[2018-07-22] MEDS ORDERED: INSULIN (NOVOLOG) ASPART 100 UNITS/ML 10ML VIAL ONE (12:12)
[2018-07-22] MEDS: THIAMINE HCL 100 MG TABLET (FP) PO SCH (21:13)
[2018-07-22] MEDS: MELATONIN 5 MG TABLETS PO PRN (21:13)
[2018-07-23] MEDS: METHADONE HCL 40 MG DISPERSABLE TABLET PO SCH (06:22)
[2018-07-23] MEDS: metFORMIN HCL 500 MG TABLET (FP) PO SCH ×2 (06:23→16:44)
[2018-07-23] MEDS: INSULIN SLIDING SCALE (NOVOLOG) 1 VIAL SQ SCH ×4 (06:25→21:08)
[2018-07-23] MEDS: PRENATAL VITAMINS W/ FOLIC ACID TABLET (FP) PO SCH (09:57)
[2018-07-23] MEDS: NICOTINE 21 MG/24 HOURS TOPICAL PATCH TD SCH (09:57)
[2018-07-23] MEDS ORDERED: INSULIN (NOVOLOG) ASPART 100 UNITS/ML 10ML VIAL ONE (12:07)
[2018-07-23] MEDS: THIAMINE HCL 100 MG TABLET (FP) PO SCH (21:08)
[2018-07-23] MEDS: MELATONIN 5 MG TABLETS PO PRN (21:08)
[2018-07-24] MEDS: METHADONE HCL 40 MG DISPERSABLE TABLET PO SCH (06:35)
[2018-07-24] MEDS: INSULIN SLIDING SCALE (NOVOLOG) 1 VIAL SQ SCH ×4 (07:11→21:16)
[2018-07-24] MEDS: metFORMIN HCL 500 MG TABLET (FP) PO SCH ×2 (07:11→16:52)
[2018-07-24] MEDS: NICOTINE 21 MG/24 HOURS TOPICAL PATCH TD SCH (10:17)
[2018-07-24] MEDS: PRENATAL VITAMINS W/ FOLIC ACID TABLET (FP) PO SCH (10:17)
[2018-07-24] MEDS ORDERED: INSULIN (NOVOLOG) ASPART 100 UNITS/ML 10ML VIAL ONE (11:40)
[2018-07-24] MEDS: THIAMINE HCL 100 MG TABLET (FP) PO SCH (21:16)
[2018-07-24] MEDS: MELATONIN 5 MG TABLETS PO PRN (21:16)
[2018-07-25] MEDS: METHADONE HCL 40 MG DISPERSABLE TABLET PO SCH (06:23)
[2018-07-25] MEDS: metFORMIN HCL 500 MG TABLET (FP) PO SCH ×2 (07:05→17:08)
[2018-07-25] MEDS: INSULIN SLIDING SCALE (NOVOLOG) 1 VIAL SQ SCH ×4 (07:05→21:15)
[2018-07-25] MEDS: NICOTINE 21 MG/24 HOURS TOPICAL PATCH TD SCH (10:20)
[2018-07-25] MEDS: PRENATAL VITAMINS W/ FOLIC ACID TABLET (FP) PO SCH (10:20)
[2018-07-25] MEDS ORDERED: INSULIN (NOVOLOG) ASPART 100 UNITS/ML 10ML VIAL ONE (11:53)
[2018-07-25] MEDS: THIAMINE HCL 100 MG TABLET (FP) PO SCH (21:15)
[2018-07-25] MEDS: MELATONIN 5 MG TABLETS PO PRN (21:15)
[2018-07-26] MEDS: METHADONE HCL 40 MG DISPERSABLE TABLET PO SCH (06:13)
[2018-07-26] MEDS: INSULIN SLIDING SCALE (NOVOLOG) 1 VIAL SQ SCH ×4 (07:14→21:21)
[2018-07-26] MEDS: metFORMIN HCL 500 MG TABLET (FP) PO SCH ×2 (07:14→17:07)
[2018-07-26] MEDS: PRENATAL VITAMINS W/ FOLIC ACID TABLET (FP) PO SCH (09:50)
[2018-07-26] MEDS: NICOTINE 21 MG/24 HOURS TOPICAL PATCH TD SCH (09:51)
[2018-07-26] MEDS: IBUPROFEN 400 MG TABLET (FP) PO PRN (09:51)
[2018-07-26] MEDS ORDERED: INSULIN (NOVOLOG) ASPART 100 UNITS/ML 10ML VIAL ONE ×2 (11:54→22:02)
--- NOTE | 2018-07-26 15:35 | PN ---
S Progress Note Note: Vital Signs Temperature 97.5 F L 07/26/18 06:45 Pulse Rate 73 07/26/18 06:45 Respiratory Rate 18 07/26/18 06:45 Blood Pressure 158/87 07/26/18 06:45 O2 Sat by Pulse Oximetry (%) Patient medically stable. Patient schedule for discharge 07/26/18. Patient to follow up with primary medial provider within a week post discharge.
[2018-07-26] MEDS: MELATONIN 5 MG TABLETS PO PRN (21:20)
[2018-07-26] MEDS: THIAMINE HCL 100 MG TABLET (FP) PO SCH (21:20)
[2018-07-27] MEDS ORDERED: METHADONE HCL 40 MG DISPERSABLE TABLET PO SCH (06:00)
[2018-07-27] MEDS: metFORMIN HCL 500 MG TABLET (FP) PO SCH (06:18)
[2018-07-27] MEDS: INSULIN SLIDING SCALE (NOVOLOG) 1 VIAL SQ SCH (06:19)
[2018-07-27 07:12] VITALS: BP 133/79; PULSE 66; TEMP 97.9
--- NOTE | 2018-07-27 08:25 | PN ---
Psychiatric Progress Note Vital Signs: Vital Signs Period Temp Pulse Resp BP Sys/Taylor Pulse Ox Last 24 Hr 97.9 F 66 16-18 133/79 Date of Session: 07/27/18 Chief Complaint:: Discharge Note HPI: Patient addressing Alcohol and Cocaine Dependence comorbid with Oipoid Dependence on Agonist Therapy, Nicotine Dependence, Substance-Induced Mood Disorder and Substance-Induced Sleep Disorder ROS: Type 2 DM, HTN Current Medications: Active Medications Generic Name Dose Route Start Last Admin Trade Name Freq PRN Reason Stop Dose Admin Acetaminophen 650 mg 07/13/18 20:23 07/18/18 18:03 Tylenol - PO 650 mg Q4H PRN Administration FEVER Al Hydroxide/Mg Hydroxide 30 ml 07/13/18 20:23 Mylanta Oral Suspension - PO Q6H PRN DYSPEPSIA Eucalyptus/Menthol/Phenol/Sorbitol 1 each 07/13/18 20:23 Cepastat Lozenge - MM Q4H PRN SORE THROAT Guaifenesin 10 ml 07/13/18 20:23 Robitussin Dm - PO Q6H PRN COUGH Hydroxyzine Pamoate 50 mg 07/13/18 20:23 07/16/18 21:16 Vistaril - PO 50 mg Q4H PRN Administration AGITATION Ibuprofen 400 mg 07/13/18 20:23 07/26/18 09:51 Motrin - PO 400 mg Q6H PRN Administration Pain Level 4-6 Insulin Aspart 1 vial 07/13/18 22:00 07/27/18 06:19 Novolog Vial Sliding Scale - SQ Not Given ACHS [facility] Protocol Loperamide HCl 4 mg 07/13/18 20:23 Imodium - PO Q6H PRN DIARRHEA Magnesium Citrate 300 ml 07/13/18 20:23 Citroma - PO Q48H PRN CONSTIPATION Magnesium Hydroxide 30 ml 07/13/18 20:23 Milk Of Magnesia - PO DAILY PRN CONSTIPATION Melatonin 5 mg 07/13/18 22:00 07/26/18 21:20 Melatonin PO 5 mg HS PRN Administration INSOMNIA Metformin HCl 500 mg 07/13/18 20:45 07/27/18 06:18 Glucophage - PO 500 mg BIDAC SHY Administration Methadone HCl 40 mg 07/27/18 06:00 07/27/18 06:17 Dolophine - PO 08/02/18 05:59 40 mg DAILY@0600 SHY Administration Nicotine 21 mg 07/14/18 10:00 07/26/18 09:51 Nicoderm Patch - TD 21 mg DAILY SHY Administration Nicotine Polacrilex 2 mg 07/13/18 20:23 Nicorette Gum - BUC Q2H PRN NICOTINE REPLACEMENT RX Multivit/Folic Acid/Iron 1 tab 07/14/18 10:00 07/26/18 09:50 Vitamins (Sjr) - PO 1 tab DAILY SHY Administration Pseudoephedrine/Triprolidine 1 combo 07/13/18 20:23 Actifed - PO TID PRN NASAL CONGESTION Thiamine HCl 100 mg 07/13/18 22:00 07/26/18 21:20 Vitamin B1 - PO 100 mg HS SHY Administration Current Side Effect: No Lab tests ordered: Yes Lab tests reviewed: Yes Provider note:: Patient has completed this program today. He has met his treatment goals and will continue to address his issues in [facility] residential treatment at [facility]. 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, he has learned to identify his triggers and better ways to avoid them.He is stable for discharge today Total face to face time:: 35 Mental Status Exam - Mental Status Exam Alert and Oriented to: Time, Place, Person Cognitive Function: Fair Patient Appearance: Well Groomed Mood: Hopeful, Euthymic Affect: Appropriate Patient Behavior: Cooperative Speech Pattern: Clear Voice Loudness: Normal Thought Process: Intact, Goal Oriented Thought Disorder: Not Present Hallucinations: Denies Suicidal Ideation: Denies Homicidal Ideation: Denies Insight/Judgement: Fair Sleep: Fair Appetite: Good Muscle strength/Tone: Normal Gait/Station: Normal Psychiatric Treatment Plan - Problem List (1) Alcohol dependence Current Visit: No (2) Cocaine dependence Current Visit: Yes (3) Opioid dependence on agonist therapy Current Visit: Yes (4) Nicotine dependence Current Visit: No Qualifiers: Nicotine product type: cigarettes (5) Substance induced mood disorder Current Visit: Yes (6) Substance-induced sleep disorder Current Visit: Yes (7) DM Diabetes mellitus type 2 Current Visit: No (8) Essential hypertension Current Visit: No Initial treatment plan: Patient is discharged today and referred to [facility] for [facility] residential treatment
[2018-07-27] MEDS: NICOTINE 21 MG/24 HOURS TOPICAL PATCH TD SCH (10:25)
[2018-07-27] MEDS: PRENATAL VITAMINS W/ FOLIC ACID TABLET (FP) PO SCH (10:25)
[2018-07-27] MEDS: IBUPROFEN 400 MG TABLET (FP) PO PRN (10:26)
== END 2018-07-27 10:35 | disposition home or self-care (01) | DRG 772 ==
LOC: YASAS 19:01 → Y3W 19:18
PROVIDERS: ADMIT Psychiatry & Neurology Psychiatry; ATTEND Psychiatry & Neurology Psychiatry
PROC: HZ42ZZZ Group Counseling for Substance Abuse Treatment, Cognitive-Behavioral (ICD-10-PCS; principal; 2018-07-13)
DX: F10.20 Alcohol dependence, uncomplicated (principal); F14.20 Cocaine dependence, uncomplicated; F11.20 Opioid dependence, uncomplicated; F17.210 Nicotine dependence, cigarettes, uncomplicated; F19.24 Other psychoactive substance dependence with psychoactive substance-induced mood disorder; F19.282 Other psychoactive substance dependence with psychoactive substance-induced sleep disorder; I10 Essential (primary) hypertension; E11.9 Type 2 diabetes mellitus without complications; M17.10 Unilateral primary osteoarthritis, unspecified knee
CPT/HCPCS: 82962